=== PATIENT | female | born 1980 | race African-American/Black ===

== ENCOUNTER → 2016-11-18 | Outpatient (CLI) | payer OTHER | LOC: ULTRA 09:34 | DX: N93.9 Abnormal uterine and vaginal bleeding, unspecified (principal); D25.9 Leiomyoma of uterus, unspecified; N83.202 Unspecified ovarian cyst, left side; N83.201 Unspecified ovarian cyst, right side ==

== ENCOUNTER → 2017-02-18 | Outpatient (CLI) | payer OTHER ==
--- NOTE | ~2017-02-18 | SLE ---
[facility] [place] [address] POLYSOMNOGRAPHY STUDY Name: AUSTYN BOYCE Room #: REG [facility]#: [id number] Admission: 02/18/17 Attend Phys: Manuel Salcedo MD, Discharge: Date of : 80 Report #: [id number] THIS REPORT FOR: //name// CC: [facility] physician/PCP Manuel Salcedo HISTORY: A 36-year-old, height 5 feet 8 inches, weight 240 pounds. Usually goes to bed at 9:00 p.m., gets out of bed at 5:10 a.m., does not feel refreshed. Positive history of snoring. COMMENTS: PVC noted. Total sleep time 343 minutes, sleep efficiency 81%. Sleep latency 10 minutes. REM latency 207 minutes. SLEEP STAGE: 1-14%, 2-73%, 3-1%, REM 12%. Central apnea 0, mixed apnea 0, obstructive apnea 0, hypopnea 0. Periodic limb movement with arousal index 1.4 events per sleep hour. Low saturation 94%. IMPRESSION: 1. Snoring. 2. Abnormal sleep architecture. 3. Premature ventricular contraction noted. SUGGESTIONS: 1. This study does not suggest obstructive sleep apnea or upper airway resistance. 2. No significant periodic limb movements noted. 3. Further evaluation regarding etiology of snoring is recommended. 4. If signs and symptoms not improved with therapy, further evaluation is recommended. <ELECTRONICALLY SIGNED> By: Stephy Mercedes MD 02/20/17 2350 1723 1738 Stephy Mercedes MD /nt
== END ==
LOC: SLEEPLAB 18:54
DX: G47.33 Obstructive sleep apnea (adult) (pediatric) (principal)

== ENCOUNTER 2018-07-19 22:48 | Emergency (ER) | payer OTHER ==
[~2018-07-19] VITALS: Ht 172.7 cm; Wt 104.3 kg
[2018-07-19] MEDS ORDERED: PRILOSEC 20 MG20 MG PO (23:07)
[2018-07-19] MEDS ORDERED: ALEVE220 MG PO (23:08)
[2018-07-20] MEDS ORDERED: MORPHINE SULFAT15 M3 PO (00:06)
[2018-07-20] MEDS ORDERED: DOXYCYCLINE 10100 MG PO (00:06)
[2018-07-20 00:32] VITALS: BP 125/81
== END 2018-07-20 00:29 | disposition home or self-care (01) ==
LOC: ER 22:48
DX: M79.672 Pain in left foot (principal); F17.210 Nicotine dependence, cigarettes, uncomplicated

== ENCOUNTER 2018-07-21 16:47 | Inpatient (IN) | payer OTHER ==
[~2018-07-21] VITALS: Ht 172.7 cm; Wt 104.3 kg
--- NOTE | ~2018-07-21 | HC ---
[facility] [place] [place] [address] CONSULTATION Name: AUSTYN BOYCE Room #: 421-P ADM IN M.R.#: [id number] Admission: 07/21/18 Attend Phys: Madison Buck MD Discharge: Date of : 80 Report #: [id number] THIS REPORT FOR: //name// CC: Payton Rodgers Madison Buck DATE OF SERVICE: 07/22/2018 ATTENDING PHYSICIAN: Madison Buck MD. REASON FOR CONSULTATION: Left foot infection. HISTORY OF PRESENT ILLNESS: The patient is a 38-year-old woman admitted with cellulitic changes, left foot and superficial left foot wound infection. Apparently, this patient was seen by his window glass cutter off on the date of admission with redness, swelling of the left foot and a lesion under the head of the left third metatarsal. The patient is scheduled for I and D today. I believe cultures were obtained at the window glass cutter off's office. DRUG ALLERGIES: None listed. MEDICATIONS: The patient is on vancomycin 1 gram IV every 8 hours, Zosyn 3.375 grams IV every 8 hours, p.r.n. hydrocodone. PAST MEDICAL HISTORY: History of podiatric surgeries to the right foot. SOCIAL HISTORY: Single, 1 child. 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 FAMILY HISTORY: See H and P. REVIEW OF SYSTEMS: Left foot pain, otherwise noncontributory. PHYSICAL EXAMINATION: GENERAL: Well-developed woman, overweight, not toxic. VITAL SIGNS: Temperature 98.2, pulse 55, respirations 16, BP 111/55. HEENMT: Within range. NECK: Supple. No thyromegaly. BREASTS: Deferred. HEART: S1, S2. No gallop or murmur. ABDOMEN: Soft, no masses or megaly. LUNGS: Clear to auscultation. EXTREMITIES: Some cellulitic changes of dorsal aspect of left foot and superficial lesion on the sole of the left foot under the head of the third metatarsal. NEUROLOGIC: Grossly within normal limits. [address] [address] CONSULTATION Name: AUSTYN BOYCE Room #: 421-[facility] IN [facility]#: [id number] Admission: 07/21/18 Attend Phys: Madison Buck MD Discharge: Date of : 80 Report #: [id number] LABORATORY DATA: Potassium 3.3, corrected to 3.5, BUN 8, creatinine 0.7, alkaline phosphatase 176. On admission, white blood cell count 13,000, repeated today 7400, hemoglobin 13.8 g/dL, platelets 174,000. ASSESSMENT: 1. Cellulitis, left foot secondary to left foot wound, question infected abscess, infected wart. 2. Elevation of alkaline phosphatase. SUGGESTIONS: While awaiting culture results, we will continue combination of vancomycin and Zosyn. Streamline antibiotics in 24-48 hours. Plan on discharging the patient on oral antibiotic. We will decide that pending culture results. Dr. Buck, thank you for requesting my suggestions. <ELECTRONICALLY SIGNED> By: Rebel Teague MD 07/23/18 1228 1009 1430 Rebel Teague MD /nt
[~2018-07-21 16:47] MED LIST: ALEVE220 MG PO; DOXYCYCLINE 10100 MG PO; MORPHINE SULFAT15 M3 PO; PRILOSEC 20 MG20 MG PO
[2018-07-21 18:19] VITALS: BP 134/83
[2018-07-21 18:26] VITALS: BP 134/83
[2018-07-21 19:22] LABS: HEMATOCRIT 43.9 % (37.0-47.0); HEMOGLOBIN 15.1 gm/dL (12.0-15.0); MCH 31.4 pg (26.0-34.0); MCHC 34.5 g/dL (28.0-37.0); MCV 91.1 fL (80.0-100.0); RBC 4.82 mil/uL (4.20-5.00)
[2018-07-21 19:32] LABS: CALCIUM 9.6 mg/dL (8.5-10.1); CREATININE 0.7 mg/dL (0.6-1.0); POTASSIUM 3.3 mmol/L (3.5-5.1)
[2018-07-21 19:38] LABS: ALBUMIN 3.6 g/dL (3.4-5.0); TOTAL BILIRUBIN 0.4 mg/dL (<0.1-1.0); TOTAL PROTEIN 7.7 g/dL (6.4-8.2)
[2018-07-21 19:49] VITALS: BP 134/82
[2018-07-22 04:21] VITALS: BP 115/62
[2018-07-22 06:19] LABS: HEMOGLOBIN 13.8 gm/dL (12.0-15.0); MCH 31.6 pg (26.0-34.0); MCHC 34.4 g/dL (28.0-37.0); MCV 91.8 fL (80.0-100.0); RBC 4.36 mil/uL (4.20-5.00); WBC 7.4 thou/uL (4.0-11.0)
[2018-07-22 06:35] LABS: CALCIUM 8.7 mg/dL (8.5-10.1); CREATININE 0.7 mg/dL (0.6-1.0); MAGNESIUM 1.8 mg/dL (1.8-2.4); POTASSIUM 3.5 mmol/L (3.5-5.1)
[2018-07-22 08:30] VITALS: BP 115/67
[2018-07-22 08:32] VITALS: BP 111/55
[2018-07-22 17:22] VITALS: BP 115/74
[2018-07-22 19:54] VITALS: BP 123/86
[2018-07-23 04:35] VITALS: BP 121/83
[2018-07-23 05:22] LABS: ABSOLUTE NEUTROPHILS 7.2 thou/uL (1.4-8.2); BASOPHILS 0.4 % (0.0-2.0); EOSINOPHILS 0.1 % (0.0-3.0); HEMATOCRIT 38.6 % (37.0-47.0); LYMPHOCYTES 13.7 % (24.0-44.0); MCHC 33.7 g/dL (28.0-37.0); MCV 92.1 fL (80.0-100.0); MONOCYTES 5.2 % (1.0-8.0); PLATELET COUNT 177 thou/uL (150-400); POLYS 80.6 % (36.0-66.0); RBC 4.19 mil/uL (4.20-5.00); RDW 12.8 % (10.5-14.5); WBC 8.9 thou/uL (4.0-11.0)
[2018-07-23 05:29] LABS: CALCIUM 9.2 mg/dL (8.5-10.1); CREATININE 0.7 mg/dL (0.6-1.0); POTASSIUM 3.9 mmol/L (3.5-5.1)
[2018-07-23 06:43] LABS: LARGE PLATELETS FEW
[2018-07-23 09:12] VITALS: BP 128/78
[2018-07-23 15:45] VITALS: BP 128/78
[2018-07-23 15:55] VITALS: BP 116/56
[2018-07-23 20:35] VITALS: BP 105/53
[2018-07-23 21:10] LABS: GLYCOHEMOGLOBIN (HGB A1C) 5.4 % (4.8-5.6)
[2018-07-24 06:12] LABS: CALCIUM 8.8 mg/dL (8.5-10.1); CREATININE 0.8 mg/dL (0.6-1.0); POTASSIUM 3.2 mmol/L (3.5-5.1)
[2018-07-24 06:38] LABS: ABSOLUTE NEUTROPHILS 3.9 thou/uL (1.4-8.2); BASOPHILS 0.8 % (0.0-2.0); HEMATOCRIT 35.9 % (37.0-47.0); HEMOGLOBIN 12.1 gm/dL (12.0-15.0); LYMPHOCYTES 32.6 % (24.0-44.0); MCH 31.1 pg (26.0-34.0); MCHC 33.7 g/dL (28.0-37.0); MCV 92.3 fL (80.0-100.0); MONOCYTES 8.4 % (1.0-8.0); PLATELET COUNT 167 thou/uL (150-400); POLYS 56.2 % (36.0-66.0); RBC 3.89 mil/uL (4.20-5.00); RDW 12.7 % (10.5-14.5); WBC 6.9 thou/uL (4.0-11.0)
[2018-07-24 07:23] LABS: LARGE PLATELETS OCCASIONAL
[2018-07-24 07:39] VITALS: BP 120/70
[2018-07-24] MEDS ORDERED: HYDROCODON-ACE1 EAC7 PO (14:23)
[2018-07-24 14:29] VITALS: BP 120/70
[2018-07-24] MEDS ORDERED: DYNACIN100 MG PO (14:32)
[2018-07-24] MEDS ORDERED: KEFLEX500 M1 PO ×2 (14:32→14:33)
== END 2018-07-24 15:31 | disposition home or self-care (01) | DRG 580 ==
LOC: 4E 16:47 → ENTRNSPT 07-24 15:16 → EDTRNSPTSTS 07-24 15:18 → 4E 07-24 15:31
PROVIDERS: Hospitalist; Internal Medicine
PROC: 0J9R0ZZ Drainage of Left Foot Subcutaneous Tissue and Fascia, Open Approach (ICD-10-PCS; principal; 2018-07-22)
DX: L03.116 Cellulitis of left lower limb (principal); L02.611 Cutaneous abscess of right foot; M86.172 Other acute osteomyelitis, left ankle and foot; F17.210 Nicotine dependence, cigarettes, uncomplicated; L03.115 Cellulitis of right lower limb; M65.072 Abscess of tendon sheath, left ankle and foot; L03.042 Acute lymphangitis of left toe
CPT/HCPCS: 10783; 50010; 50101; 50386; 53078; 56525; 57091; 57179; 62110; 62900; 64039; 64043; 70005

== ENCOUNTER → 2018-08-12 | Outpatient (CLI) | payer OTHER ==
[~2018-08-12] VITALS: Ht 172.7 cm; Wt 120.2 kg
[~2018-08-12] MED LIST changes: +DYNACIN100 MG PO; +HYDROCODON-ACE1 EAC7 PO; +KEFLEX500 M1 PO
[2018-08-12 11:06] VITALS: BP 108/71
== END ==
LOC: SEN 08:33
DX: L02.612 Cutaneous abscess of left foot (principal); L03.116 Cellulitis of left lower limb

== ENCOUNTER → 2019-07-19 | Outpatient (CLI) | payer OTHER | LOC: CAT 10:22 | DX: K57.32 Diverticulitis of large intestine without perforation or abscess without bleeding (principal); K57.30 Diverticulosis of large intestine without perforation or abscess without bleeding; M16.0 Bilateral primary osteoarthritis of hip ==

== ENCOUNTER → 2019-07-21 | Outpatient (CLI) | payer OTHER ==
[~2019-07-21] MED LIST changes: +ZOSYN 4.54.5 GM/101 IV
== END | disposition home or self-care (01) ==
LOC: RAD 09:02
DX: M25.552 Pain in left hip (principal); G89.29 Other chronic pain; M16.12 Unilateral primary osteoarthritis, left hip; S73.192A Other sprain of left hip, initial encounter; Z79.899 Other long term (current) drug therapy; Z98.890 Other specified postprocedural states; X58.XXXA Exposure to other specified factors, initial encounter; Y93.89 Activity, other specified; Y92.89 Other specified places as the place of occurrence of the external cause; Y99.8 Other external cause status

== ENCOUNTER 2019-08-02 19:03 | Inpatient (IN) | payer OTHER ==
[~2019-08-02] VITALS: Ht 172.7 cm; Wt 103.9 kg
[~2019-08-02 19:03] MED LIST changes: -ZOSYN 4.54.5 GM/101 IV
[2019-08-02 19:10] VITALS: BP 100/56
[2019-08-02 20:35] LABS: URINE BILIRUBIN 1+ (Negative); URINE BLOOD 1+ (Negative); URINE CLARITY CLEAR; URINE COLOR YELLOW; URINE GLUCOSE-RANDOM* NEGATIVE (Negative); URINE KETONES 2+ (Negative); URINE LEUKOCYTES-REFLEX NEGATIVE (Negative); URINE NITRITE-REFLEX NEGATIVE (Negative); URINE PROTEIN (DIPSTICK) NEGATIVE (Negative); URINE SPECIFIC GRAVITY <= 1.005 (1.005-1.035); URINE UROBILINOGEN 0.2 E.U./dl (0.2-1.0)
[2019-08-02 20:47] LABS: BACTERIA-REFLEX None Seen /HPF (None Seen); SQUAMOUS >10 Many /LPF (0-3)
[2019-08-02 20:48] LABS: CRYSTALS None Seen /LPF (None Seen); HYALINE CASTS 0-3 Few /LPF (None Seen); URINE RBC 3-10 Few /HPF (0-2)
[2019-08-02 21:01] LABS: BASOPHILS 0.8 % (0.0-2.0); EOSINOPHILS 0.3 % (0.0-3.0); HEMOGLOBIN 12.7 gm/dL (12.0-15.0); LYMPHOCYTES 16.6 % (24.0-44.0); MCH 30.2 pg (26.0-34.0); MCHC 33.5 g/dL (28.0-37.0); PLATELET COUNT 242 thou/uL (150-400); POLYS 73.3 % (36.0-66.0); RBC 4.22 mil/uL (4.20-5.00); RDW 12.9 % (10.5-14.5); WBC 12.3 thou/uL (4.0-11.0)
[2019-08-02 21:12] LABS: CALCIUM 9.5 mg/dL (8.5-10.1); CREATININE 0.8 mg/dL (0.6-1.0)
[2019-08-02 21:16] LABS: TOTAL BILIRUBIN 0.4 mg/dL (<0.1-1.0); TOTAL PROTEIN 7.2 g/dL (6.4-8.2)
[2019-08-03 00:59] VITALS: BP 113/54
--- NOTE | 2019-08-03 01:04 | NUR ---
ED NURSE ATTEMPTED TO CALL REPORT TO INPATIET NURSE, WAS TOLD INPATIENT NURSE WILL HAVE TO CALL BACK AT A LATER TIME
--- NOTE | 2019-08-03 04:53 | NUR ---
PATIENT ARRIVED ON UNIT AT 0125 FROM ED ACCOMPANIED BY ED PERSONEL. PATIENT ALERT AND ORIENTED X4. IV PATENT IN RAC. NPO AT THIS TIME. PATIENT NOT A FALL RISK. SLEPT OFF AND ON DURING NIGHT.
[2019-08-03 07:30] VITALS: BP 97/57
[2019-08-03 09:12] LABS: CREATININE 0.5 mg/dL (0.6-1.0); MAGNESIUM 1.7 mg/dL (1.8-2.4); POTASSIUM 3.2 mmol/L (3.5-5.1)
[2019-08-03 09:54] LABS: APTT 27.4 Seconds (24.5-32.8); INR 1.2; PROTIME 12.3 Seconds (9.3-11.4)
--- NOTE | 2019-08-03 10:30 | NUR ---
PT A&OX4, IV INTACT IN R AC INFUSING FLUIDS W/O COMPS. UP AD HA. VSS, PT IS NPO. STATES PAIN TO RLQ AT 7/10 ALONG WITH SOME NAUSEA. WILL CONT POC.
[2019-08-03 16:00] VITALS: BP 103/68
--- NOTE | 2019-08-03 16:39 | NUR ---
ASSESSMENT-PT LIVES IN AN APT. SHE WALKS ON HER OWN AND DOES HER OWN ADLS. PER DR Fco HURD PT WILL REQUIRE IV ABX AT UT. FAXED REFERRAL TO [facility] TO CHECK FOR PREFERRED PROVIDERS AND BENEFITS. RIGHT NOW PT HAS MET $19.60 TOWARDS HER $1000 DED., AND SHE HAS MET 4153.16 towards her $6,500 oop max. PT TO GO TO [facility] TOMORROW TO HAVE POSSIBLE DRAIN PLACED. FOLLOWING.
[2019-08-03 16:45] VITALS: BP 154/78
[2019-08-03 19:27] VITALS: BP 112/63
[2019-08-04 03:42] VITALS: BP 121/62
[2019-08-04 05:19] LABS: ABSOLUTE NEUTROPHILS 3.6 thou/uL (1.4-8.2); BASOPHILS 1.3 % (0.0-2.0); EOSINOPHILS 1.4 % (0.0-3.0); HEMATOCRIT 33.1 % (37.0-47.0); HEMOGLOBIN 10.9 gm/dL (12.0-15.0); MCH 30.4 pg (26.0-34.0); MCHC 33.1 g/dL (28.0-37.0); MCV 91.9 fL (80.0-100.0); MONOCYTES 7.5 % (1.0-8.0); PLATELET COUNT 201 thou/uL (150-400); POLYS 61.8 % (36.0-66.0); RDW 13.1 % (10.5-14.5); WBC 5.8 thou/uL (4.0-11.0)
[2019-08-04 05:21] LABS: CALCIUM 8.4 mg/dL (8.5-10.1); CREATININE 0.6 mg/dL (0.6-1.0); POTASSIUM 3.4 mmol/L (3.5-5.1)
--- NOTE | 2019-08-04 05:55 | NUR ---
AOX4. UP AD HA. MEDICATED FOR PAIN RELIEF. VSS. NPO STATUS MAINTIANED. NO COMPLAINS CURRENTLY. WILL CONTINUE TO MONITOR
[2019-08-04 08:04] VITALS: BP 132/63
[2019-08-04 08:16] VITALS: BP 106/68
--- NOTE | 2019-08-04 14:52 | NUR ---
DISCUSSED PICC LINE THAT WAS ORDERED YESTERDAY, PT REFUSING UNTIL SHE SPEAKS WITH . PIV PLACED
[2019-08-04 16:46] VITALS: BP 107/56
--- NOTE | 2019-08-04 18:37 | NUR ---
PT A&OX4, NEW IV IN R FA INTACT INFUSING NS @ 100/HR. AFEBRILE. DRAIN WAS PLACED TODAY. PT REFUSED PICC LINE TODAY UNTIL INFORMS PT INFORMATION ON IV ANTIBIOTIC AND HH. PAIN AND NAUSEA MANAGED BY IV MEDS. REMAIN NPO.
[2019-08-04 20:04] VITALS: BP 119/72
--- NOTE | 2019-08-04 21:04 | HC ---
[facility] [place] [place] [address] CONSULTATION Name: AUSTYN BOYCE Room #: 443-P ADM IN M.R.#: [id number] Admission: 08/03/19 Attend Phys: Vinny Valero MD Discharge: Date of : 80 Report #: [id number] THIS REPORT FOR: //name// CC: Gene Rodgers DATE OF SERVICE: 08/03/2019 INFECTIOUS DISEASE CONSULTATION REASON FOR CONSULTATION: Evaluate diverticular abscess. HISTORY OF PRESENT ILLNESS: A 39 year old presents to the Emergency Room on 06/05/2019 with low-grade fever, chills, left lower quadrant pain that has been going on for several weeks. Initially was evaluated in the outpatient clinic and diagnosed with diverticulitis and given doxycycline and metronidazole. She did not improve with this and persisted with lower abdominal pain, mild nausea, occasional emesis, anorexia. She has had some dysuria. No back or flank pain. Evaluated in the Emergency Room. CT scan shows evidence of sigmoid diverticular disease with diverticulitis and a presacral abscess. There was no free air in the abdomen. She has a moderate amount of pain that is intermittent. She has had loose stools. No blood in her urine or fecal material in her urine. The patient reports longstanding loose stools. She has had no episodes of prolonged constipation. She has not sought evaluation for this up to this point in time. ALLERGIES: None known. MEDICATIONS: As noted on her MAR, now on Zosyn, omeprazole and hydromorphone p.r.n. FAMILY HISTORY: Noncontributory. SOCIAL HISTORY: Past smoker. Minimal alcohol intake. PAST MEDICAL AND SURGICAL HISTORY: Foot abscess, status post I and D; right bunionectomy, second and third toe; right foot fusion; laparoscopy and hysteroscopy; tonsillectomy and gastroesophageal reflux. REVIEW OF SYSTEMS: Ten-point review was negative other than what has been described above. PHYSICAL EXAMINATION: VITAL SIGNS: Afebrile and hemodynamically stable. GENERAL: She is alert and cooperative and pleasant, in no acute distress. [facility] [address] [place] [address] CONSULTATION Name: AUSTYN BOYCE Room #: 443-P [facility] IN M.R.#: [id number] Admission: 08/03/19 Attend Phys: Vinny Valero MD Discharge: Date of : 80 Report #: [id number] SKIN: Without rash. Several tattoos. No palpable adenopathy. HEENT: Eyes, without scleral icterus. Mouth without mucositis. NECK: Supple. LUNGS: Clear. HEART: Regular without murmur, gallop or rub. ABDOMEN: Soft, mild tenderness in the lower abdomen without appreciable mass or hepatosplenomegaly. No guarding or rebound. No CVA tenderness. GENITORECTAL: Not performed. EXTREMITIES: Without clubbing, cyanosis or edema. NEUROLOGIC: Cranial nerves intact. Strength in the upper and lower extremities is normal. Sensation upper and lower extremities normal. LABORATORY STUDIES: Lactate 0.6, sodium 141, potassium 3.2, bicarbonate 29, creatinine 0.5. Liver function tests normal. Hemoglobin 12.7, WBC 12.3, platelet count 242,000. IMPRESSION: A 39 year old with diverticulitis of the sigmoid colon with development of pericolonic phlegmonous change and a presacral abscess. RECOMMENDATIONS: Continuing Zosyn and obtain evaluation by Interventional Radiology for drainage procedure. Once bowel has calmed down, we then proceed with colonoscopy and likely need area of sigmoid colon resected. <ELECTRONICALLY SIGNED> By: Darrick Wilkins MD 08/04/19 2104 1203 0058 Darrick Wilkins MD /nt
[2019-08-05 04:51] VITALS: BP 105/63
--- NOTE | 2019-08-05 06:09 | NUR ---
Assumed pt care at 1900. Pt is A/OX4,VSS. C/o pain to RLQ 6/10 medicated per EMAR with relief reported. Also c/o nausea with no emesis reliefed by meds. Pt is NPO ice chips only awaiting repeat Abd CT possibly Friday to assess the abscess. Pt also received her Flu shot at HS no ADR reported so far,will continue to monitor pt. She's up ad christian w/o any problems noted.
[2019-08-05 08:43] VITALS: BP 110/61
--- NOTE | 2019-08-05 17:03 | NUR ---
DISCUSSED PT'S BENEFITS FOR IV ABX AND PT SAYS SHE WILL NOT BE ABLE TO DO THIS AT HOME. PT HAS FINANCIAL CONCERNS WELL. PT WOULD BE WILLING TO COME OUTPT TO THE INFUSION AREA IF A Q24HR MED IS AVAILABLE. WILL DISCUSS WITH DR Fco HURD.
--- NOTE | 2019-08-05 18:30 | NUR ---
PT ASSESSED AT START OF SHIFT. PT C/O PAIN AND NAUSEA ON REGULAR BASIS THROUGHOUT SHIFT. HELPED W/ PAIN AND NAUSEA MEDS. NEW IV PER IV TEAM. UP AD HA IN ROOM. REPEAT CT IN AM TO SEE IF ANY IMPROVEMENT.
--- NOTE | 2019-08-05 19:32 | NUR ---
NOTIFIED TO PLACE A PERIPHERAL IV, SHE IS REFUSING THE PICC PLACEMENT AT THIS TIME
[2019-08-05 19:59] VITALS: BP 109/67
--- NOTE | 2019-08-06 03:41 | NUR ---
PT WAS OBSERVED SITTING UP IN BED AT START OF SHIFT.PT REQUESTED FOR AND RECEIVED PAIN AND NAUSEA MEDS PER HER REQUEST.IVF AND IV ABX GIVEN ORDERED.UP ADLIB IN ROOM.PT ABLE TO MAKE HER NEEDS KNOWN.CALL LIGHT WITHIN REACH.
[2019-08-06 04:57] VITALS: BP 118/72
[2019-08-06 05:11] LABS: BASOPHILS 0.8 % (0.0-2.0); EOSINOPHILS 2.2 % (0.0-3.0); HEMATOCRIT 31.6 % (37.0-47.0); HEMOGLOBIN 10.7 gm/dL (12.0-15.0); LYMPHOCYTES 33.3 % (24.0-44.0); MCH 30.7 pg (26.0-34.0); MCHC 33.8 g/dL (28.0-37.0); MONOCYTES 7.6 % (1.0-8.0); PLATELET COUNT 212 thou/uL (150-400); POLYS 56.1 % (36.0-66.0); RBC 3.47 mil/uL (4.20-5.00); WBC 5.3 thou/uL (4.0-11.0)
[2019-08-06 08:44] VITALS: BP 112/72
--- NOTE | 2019-08-06 09:47 | NUR ---
PATIENT LEFT FOR TEST AT THIS TIME. GIVEN PRN PAIN MED AND ZOFRAN AT THIS TIME
--- NOTE | 2019-08-06 15:16 | NUR ---
PLAN PER DR HANSON WILL BE TO REPEAT A CT SCAN AGAIN ON FRIDAY TO MONITOR ABD ABCESS. PT CONTINUES ON IV ABX.
[2019-08-06 16:33] VITALS: BP 113/66
[2019-08-06 19:15] VITALS: BP 118/69
--- NOTE | 2019-08-07 02:52 | NUR ---
PATIENT ALERT AND ORIENTED X4. UP ADLIB IN ROOM. IVF INFUSING W/O COMPLICATION. MEDICATED FOR PAIN PRN ALONG WITH ZOFRAN. REMAINS NPO WITH ICE CHIPS. PER AM NURSE DR. SMITH WILL OBSERVE PATIENT THIS WEEKEND AND SHE WILL HAVE A CT OF HER ABDOMEN ON FRIDAY WITH POSSIBLE DISCHARGE. WILL MONITOR.
[2019-08-07 04:28] VITALS: BP 109/69
[2019-08-07 05:38] LABS: HEMOGLOBIN 10.8 gm/dL (12.0-15.0); MCH 30.7 pg (26.0-34.0); MCHC 33.8 g/dL (28.0-37.0); MCV 90.9 fL (80.0-100.0); RBC 3.52 mil/uL (4.20-5.00)
[2019-08-07 05:46] LABS: CALCIUM 8.6 mg/dL (8.5-10.1); CREATININE 0.7 mg/dL (0.6-1.0); POTASSIUM 3.2 mmol/L (3.5-5.1)
[2019-08-07 08:10] VITALS: BP 116/68
[2019-08-07 15:43] VITALS: BP 120/67
[2019-08-07 16:00] VITALS: BP 124/61
--- NOTE | 2019-08-07 16:02 | NUR ---
ASSUMED CARE OF PT AT 0700. PT IS UP AD HA. N/V UNDER CONTROL WITH MEDICATION.PAIN CONTROLLED WITH PAIN MEDICATION. ANOTHER CT OF ABDOMEN WILL BE DONE ON 08/09. PT WILL REMAIN NPO. CAN HAVE ICE CHIPS AND TAKE PO MEDICATIONS WITH SIPS OF WATER. BED IN LOWEST POSITION. CALL LIGHT WITHIN REACH. WILL CONTINUE TO MONITOR PT.
[2019-08-07 21:03] VITALS: BP 120/75
--- NOTE | 2019-08-08 02:44 | NUR ---
ASSESSMENTS COMPLETED. PT FEELING TIRED WITH SOME DIZZINESS. BG WAS 51. LONI MILLER WAS NOTIFIED AND ORDERS FOR D5NS @100ML/HR WAS RECIEVED. AFTER 2HRS BG WENT UP TO 78. PT STATED THAT SHE FEELS A LITTLE BETTER. PT IS ADLIB IN THE ROOM WITH STAEDY GAIT. NAUSEA AND PAIN ARE WELL CONTROLLED WITH CURRENT REGIMENS. NPO STATUS STILL IN PLACED WITH SIPS AND MEDS. LONI ANGELA DIDN'T WANT PT ON A Q6 SCHEDULED BG CHECK. BG IS TO BE CHECKED AT 0400, AND IF WNL; TO CONT CURRENT POC WITH D5NS @100ML/HR. CALL ZUNIGA WITHIN REACH, PT IS ENCOURAGED TO CALL FOR ASSISTANCE NEEDED. NO S/S OF DISTRESS. CONT TO MONITOR
[2019-08-08 03:35] VITALS: BP 112/70
[2019-08-08 07:45] VITALS: BP 119/66
--- NOTE | 2019-08-08 15:06 | NUR ---
ASSUMED CARE OF PT AT 0700. PT IS NPO.PAIN IS UNDER CONTROL WITH PAIN MEDICATION. PT IS VERY ANXIOUS AND ASKED ABOUT LEAVING AMA. EXPLAINED TO PT THAT WE CANNOT KEEP HER, BUT A FORM NEEDS TO BE SIGNED IF SHE DECIDES TO AMA. PT EXPRESSED THAT SHOULD WOULD WAIT AND SHE. BED IN LOWEST POSITION. CALL LIGHT WITHIN REACH. WILL CONTINUE TO MONITOR THE PT.
[2019-08-08 15:29] VITALS: BP 147/68
[2019-08-08 16:51] LABS: CALCIUM 8.7 mg/dL (8.5-10.1); CREATININE 0.6 mg/dL (0.6-1.0); MAGNESIUM 1.6 mg/dL (1.8-2.4)
[2019-08-08 16:52] LABS: POTASSIUM 2.9 mmol/L (3.5-5.1)
[2019-08-08 18:57] VITALS: BP 116/64
--- NOTE | 2019-08-09 03:04 | NUR ---
PATIENT ALERT AND ORIENTED X4. C/O PAIN AND NAUSEA FOR WHICH MEDICATION WAS GIVEN WITHIN PARAMETERS. REMAINS NPO. IVF INFUSED W/O COMPLICATION. TOLERATING ICE CHIPS WITH NO EMESIS DURING THE NIGHT. POTASSIUM LEVEL DRAWN PER PROTOCOL PATIENT WAS 2.9 AT SHIFT CHANGE. LAB DRAWN AGAIN FOR K+ AT APPROX. 2245 AND WAS 3.2. PER PROTOCOL PATIENT IS RECEIVING 20MEQ IVPB X2 AT TIME OF THIS NOTE AND WILL BE RECHECKED PER PROTOCOL. RESTING QUIETLY AT TIME OF NOTE. WILL MONITOR.
[2019-08-09 05:08] LABS: HEMATOCRIT 35.2 % (37.0-47.0); HEMOGLOBIN 11.9 gm/dL (12.0-15.0); MCH 30.3 pg (26.0-34.0); MCHC 33.8 g/dL (28.0-37.0); MCV 89.7 fL (80.0-100.0); RBC 3.93 mil/uL (4.20-5.00); RDW 13.5 % (10.5-14.5); WBC 5.3 thou/uL (4.0-11.0)
[2019-08-09 05:25] LABS: CALCIUM 8.9 mg/dL (8.5-10.1); CREATININE 0.7 mg/dL (0.6-1.0); POTASSIUM 3.8 mmol/L (3.5-5.1)
[2019-08-09 07:20] VITALS: BP 129/77
--- NOTE | 2019-08-09 11:03 | NUR ---
PATIENT LEFT AT THIS TIME TO HAVE CT OF ABD. WAS GIVEN PRN ZOFRAN AND PAIN MED IV BEFORE.
--- NOTE | 2019-08-09 15:28 | NUR ---
CASE DISCUSSED WITH ATTENDING AND WITH DR Fco HURD. DR HURD WAWARE PT REFUSING OUTPT ABX & WILL ONLY DO OUTPT INFUSION IF IV'S NEEDED. AFTER REVIEWING INFO DR HURD SAYS HOME ON ORAL ABX ONCE MEDICALLY STABLE.
[2019-08-09 15:40] VITALS: BP 124/76
[2019-08-09 19:31] VITALS: BP 100/67
--- NOTE | 2019-08-09 21:49 | NUR ---
PT HAD CT SCAN SEE CHART RESULTS. CALL TO DR JACKSON XS 2 DR FLORES RETURNED CALL AT 1607 STATED PATIENT COULD HAVE CLEAR LIQUID DIET UNTIL MIDNIGHT THEN NPO.HAS D5 NS INFUSING AT 100/HR THROUGH LEFT FA. PT TAKES ZOFRAN AND DILUADID IV PUSH EVERY 4 HOURS. DRANK CONTRAST XS 2 BOTTLES EARLIER AND STATES HAS FELT BAD EVER SINCE. PATIENT STATES DOES NOT WANT ANYMORE PO OR IV KCL MAKES HER FEEL BAD. PT WANTS TO DC TO HOME TOMMORROW.
--- NOTE | 2019-08-10 04:20 | NUR ---
ASSUMED PT CARE AROUND 1900. A&OX4. PT C/O RLQ ABDOMINAL PAIN AND GENERALIZED ACHING PAIN. PAIN MEDICATION GIVEN. SHE ALSO C/O SOME NAUSEA, ESPECIALLY AFTERING DRINKING ORAL CONTRAST YESTERDAY. ZOFRAN GIVEN. PT HAS BEEN SLEEPING MOST OF THE NIGHT. NPO SINCE MIDNIGHT PER SURGEON'S ORDER. PT IS UP AD HA AROUND THE ROOM. NO OTHER MAJOR COMPLAINTS THIS SHIFT. PROGRESSING SLOWLY TOWARD POC GOALS. WILL CONTINUE TO MONITOR FURTHER.
--- NOTE | 2019-08-10 04:23 | NUR ---
PT'S POTASSIUM WAS BELOW NORMAL RANGE WITH AM LABS YESTERDAY. PT IS ON ELECTROLYTE REPLACEMENT PROTOCOL. PT REFUSED POTASSIUM REPLACEMENT. WILL MONITOR AM LABS THIS MORNING.
[2019-08-10 04:55] VITALS: BP 147/78
[2019-08-10 06:35] LABS: HEMATOCRIT 35.3 % (37.0-47.0); HEMOGLOBIN 11.7 gm/dL (12.0-15.0); MCH 29.8 pg (26.0-34.0); MCV 90.3 fL (80.0-100.0); RBC 3.91 mil/uL (4.20-5.00); RDW 13.6 % (10.5-14.5); WBC 5.3 thou/uL (4.0-11.0)
[2019-08-10 06:44] LABS: CALCIUM 8.9 mg/dL (8.5-10.1); CREATININE 0.7 mg/dL (0.6-1.0)
[2019-08-10 06:49] LABS: POTASSIUM 2.8 mmol/L (3.5-5.1)
[2019-08-10 08:09] VITALS: BP 126/75
--- NOTE | 2019-08-10 16:01 | NUR ---
Following for d/c planning needs. Received order from physician to arrange home IVAB. Spoke with pt and she is agreeable. [facility] is in network with pt's insurance. Faxed referral to [facility] and liaison came to do onsite. Benefits were run and pt has $27/day co-pay for medications and supplies until out of pocket maximum has been met. Pt was given information re: co-pay amount. [facility] has financial assistance program. Liaison provided assistance program paperwork. Gave to pt to complete. Will fax to [facility] when completed. Will remain available to assist as needed.
[2019-08-10 16:46] VITALS: BP 119/61
--- NOTE | 2019-08-10 19:59 | NUR ---
PT A&OX4. IV INTACT AT THIS TIME IN R AC. POTTASIUM IV INFUSING. PT NOW ON CLEAR LIQUID DIET. TOLERATING IV PAIN AND NAUSEA MEDS. PLANS ARE FOR PT TO DC WITH IV ABX.
[2019-08-10 20:05] VITALS: BP 114/68
--- NOTE | 2019-08-11 04:40 | NUR ---
Assumed pt care at 1900. Pt A/OX4,upset about IV team not coming to start a midline on her per day nurse report ER nurse came and started a PIV on pt. Pt complained about the IV being in a location she had one before and stated it was bad. IV patent and has blood return in it. Offered to switch sites but she declined stating only IV team can do it,prison guard supervisor notified and informed this engineering writer that the IV team had already been to pt's room earlier and the plan was to put midline/PICC 08/11 per MORAIMA queen if needed. Metal Patternmaker went back to pt's room and informed of the above;pt didn't verbalize having any contact with IV team but hasn't had further complains about the IV. IVF/KCL infusing at this time w/o any difficulties. Medicated for pain/nausea per request with relief reported. Pt verbalized desire to really go home today. Encouraged to call for help as needed. Call light/personal items within reach.
[2019-08-11 05:25] VITALS: BP 138/80
--- NOTE | 2019-08-11 11:25 | NUR ---
SPOKE WITH DR TOLENTINO HE IS PUTTING ORDERS IN FOR PO N$V MED AND MIDLINE PLACEMENT. PT TO DISCHARGE TO HOME TODAY.
--- NOTE | 2019-08-11 12:25 | NUR ---
Following for d/c planning needs. [facility] did on-site visit with pt and instruction with pt and pt's sister. Plan is for liaison to return today for additional instruct. Pt's sister said that pt has not completed financial assistance form, but that pt should be able to afford the $189 for the 2 weeks worth of IVAB. Pt to d/c home today.
[2019-08-11] MEDS ORDERED: HYDROCODON-ACE1 EAC7 PO (12:44)
[2019-08-11] MEDS ORDERED: ZOSYN 4.54.5 GM/101 IV (12:45)
[2019-08-11 13:02] VITALS: BP 138/80
[2019-08-11 13:59] VITALS: BP 138/80
[2019-08-11 14:50] VITALS: BP 138/80
--- NOTE | 2019-08-11 14:52 | NUR ---
DISCHARGE PAPERS GONE OVER WITH PATIENT SIGNED AND COPY IN CHART. HAS LEFT UPPER ARM MIDLINE FOR HOME IV ABT.PT W/O PAIN OR RESP DISTRESS AT DC
== END 2019-08-11 15:34 | disposition home health service (06) | DRG 392 ==
LOC: ER 19:03 → 4S 08-03 00:46 → EROBS 08-03 00:46 → 4S 08-03 01:20 → ENTRNSPT 08-11 14:43 → EDTRNSPTSTS 08-11 14:46 → 4S 08-11 15:34
PROVIDERS: Emergency Medicine; Hospitalist; Nurse Practitioner Acute Care; Surgery; ADMIT Hospitalist
PROC: 05HY33Z Insertion of Infusion Device into Upper Vein, Percutaneous Approach (ICD-10-PCS; principal; 2019-08-11)
PROC: B54NZZZ Ultrasonography of Left Upper Extremity Veins (ICD-10-PCS; 2019-08-11)
DX: K57.20 Diverticulitis of large intestine with perforation and abscess without bleeding (principal); N39.0 Urinary tract infection, site not specified; E87.6 Hypokalemia; N73.9 Female pelvic inflammatory disease, unspecified; K21.9 Gastro-esophageal reflux disease without esophagitis; Z90.710 Acquired absence of both cervix and uterus; Z98.1 Arthrodesis status; Z87.891 Personal history of nicotine dependence; Z79.899 Other long term (current) drug therapy; Z23 Encounter for immunization
CPT/HCPCS: 10195; 27000

== ENCOUNTER → 2019-08-19 | Outpatient (CLI) | payer OTHER ==
[~2019-08-19] MED LIST changes: +ZOSYN 4.54.5 GM/101 IV
--- NOTE | 2019-08-19 13:43 | NUR ---
CONSULTED TO REPLACE A MIDLINE FOR A PATIENT RECEIVING HOME IV ANTIBIOTICS. PRIOR MIDLINE WAS LEAKING AT THE SITE. LINE REMOVED AND PRESSURE HELD PER POLICY. AFTER A VERBAL CONSENT WAS OBTAINED A #4F POWERMIDLINE WAS PLACED PER HOSPITAL POLICY. LINE WAS TRIMMED TO 12CM AND ADVANCED WITHOUT DIFFICULTY. LINE SECURED AND RELEASED FOR USE. PATIENT CARE TURNED OVER TO RUTH SAUCEDO IN OP INFUSION
--- NOTE | 2019-08-19 14:32 | NUR ---
ADDON TODAY FOR MIDLINE REPLACEMENT. IV TEAM SONG REPLACED MIDLINE THE OLD ONE WAS LEAKING. PATIENT ALERT AND ORIENTED X 4. DENIED ALLERGIES. MIDLINE REPLACED IN LEFT UPPER ARM AND TOLERATED WELL. SALINE LOCKED. DISMISSED IN GOOD CONDITION.
== END | disposition home or self-care (01) ==
LOC: CV 12:12 → OPONC 12:12
DX: Z45.2 Encounter for adjustment and management of vascular access device (principal); Z98.890 Other specified postprocedural states; Z79.899 Other long term (current) drug therapy; Z79.891 Long term (current) use of opiate analgesic; Z87.19 Personal history of other diseases of the digestive system
CPT/HCPCS: 27000

== ENCOUNTER → 2019-08-25 | Outpatient (CLI) | payer OTHER | LOC: CAT 08:59 | DX: K57.32 Diverticulitis of large intestine without perforation or abscess without bleeding (principal); N73.9 Female pelvic inflammatory disease, unspecified; K57.30 Diverticulosis of large intestine without perforation or abscess without bleeding ==

== ENCOUNTER → 2019-08-27 | Outpatient (CLI) | payer OTHER ==
[~2019-08-27] MED LIST changes: +CARAFATE1 GM PO; +CIPRO500 M1 PO; +CLINDAMYCIN HC150 MG PO; +FAMOTIDINE 20 M20 MG PO; +PEPCID COMPLET1 EACH PO
--- NOTE | 2019-08-27 15:31 | NUR ---
PT ASSESSED IN OUTPT INFUSION. HER ML FROM 08/13 WAS REMOVED ON 08/19 AND A NEW ML PLACED. THAT ML WAS REMOVED BY HH RN YESTERDAY. VICKEY WANTED ANOTHER ML PLACED. DUE TO THE FAILURE OF ML'S WITH THIS PT ASKED FOR A PICC ORDER AND HE COMPLIED. 4FRSLPICC PLACED RUABASILIC WITH THE TIP CONFIRMED AT THE [facility]. PT RELEASED TO GO HOME.
== END ==
LOC: OPONC 10:08
DX: Z45.2 Encounter for adjustment and management of vascular access device (principal)
CPT/HCPCS: 27000

== ENCOUNTER → 2019-09-02 | Outpatient (CLI) | payer OTHER ==
[~2019-09-02] MED LIST changes: -CARAFATE1 GM PO; -CIPRO500 M1 PO; -CLINDAMYCIN HC150 MG PO; -FAMOTIDINE 20 M20 MG PO; -PEPCID COMPLET1 EACH PO
== END ==
LOC: CAT 13:04
DX: K76.0 Fatty (change of) liver, not elsewhere classified (principal); K57.92 Diverticulitis of intestine, part unspecified, without perforation or abscess without bleeding; K57.30 Diverticulosis of large intestine without perforation or abscess without bleeding; M47.816 Spondylosis without myelopathy or radiculopathy, lumbar region

== ENCOUNTER 2019-09-17 16:04 | Emergency (ER) | payer OTHER ==
[~2019-09-17] VITALS: Ht 172.7 cm; Wt 95.3 kg
[2019-09-17] MEDS ORDERED: CIPRO500 M1 PO (16:23)
[2019-09-17] MEDS ORDERED: CLINDAMYCIN HC150 MG PO (16:24)
[2019-09-17 17:00] LABS: MCH 30.2 pg (26.0-34.0); MCHC 33.1 g/dL (28.0-37.0); MCV 91.2 fL (80.0-100.0)
[2019-09-17 17:02] LABS: ABSOLUTE NEUTROPHILS 3.3 thou/uL (1.4-8.2); BASOPHILS 1.1 % (0.0-2.0); EOSINOPHILS 2.2 % (0.0-3.0); HEMATOCRIT 38.6 % (37.0-47.0); HEMOGLOBIN 12.8 gm/dL (12.0-15.0); LYMPHOCYTES 34.8 % (24.0-44.0); PLATELET COUNT 275 thou/uL (150-400); POLYS 50.9 % (36.0-66.0); RBC 4.23 mil/uL (4.20-5.00); RDW 15.4 % (10.5-14.5); WBC 6.4 thou/uL (4.0-11.0)
[2019-09-17 17:07] LABS: ANION GAP 14 mmol/L (7-16); BUN 9 mg/dL (7-18); CALCIUM 10.2 mg/dL (8.5-10.1); CHLORIDE 101 mmol/L (98-107); CO2 21 mmol/L (21-32); CREATININE 0.9 mg/dL (0.6-1.0); GLUCOSE 90 mg/dL (74-106); POTASSIUM 3.5 mmol/L (3.5-5.1); SODIUM 136 mmol/L (136-145)
[2019-09-17 17:17] LABS: ALBUMIN 3.7 g/dL (3.4-5.0); SGOT 38 U/L (15-37); SGPT 41 U/L (30-65); TOTAL BILIRUBIN 0.3 mg/dL (<0.1-1.0); TOTAL PROTEIN 7.4 g/dL (6.4-8.2); TROPONIN-I <0.06 ng/mL (<0.06)
[2019-09-17] MEDS ORDERED: FAMOTIDINE 20 M20 MG PO (18:15)
[2019-09-17 18:36] VITALS: BP 118/72
--- NOTE | 2019-09-20 07:35 | EKG ---
[place] [address] [address] [place] [address] ELECTROCARDIOGRAM REPORT Name: AUSTYN BOYCE [id number] Admission: 09/17/19 Attend Phys: Discharge: 09/17/19 Date of : 80 Report #: [id number] THIS REPORT FOR: //name// [facility] [place] [place] ED Test Date: 2019-09-17 Test Time: 16:38:51 Pat Name: AUSTYN BOYCE Department: Room: Gender: F Spanish Interpreter/Translator: WG : 1980 Requested By: Nancie Méndez Order Number: [id number] MD: Noble Espinoza Measurements Intervals [place] Rate: 55 P: 28 NJ: 116 QRS: -8 QRSD: 99 T: 27 QT: 450 QTc: 431 Interpretive Statements Sinus bradycardia Borderline short NJ interval No previous ECG available for comparison Electronically Signed On 09-20-2019 7:35:30 STOP ATTACHER by Noble Espinoza [email or web address] <ELECTRONICALLY SIGNED> By: Noble Espinoza MD, [facility] 09/20/19 0735 1638 1638 Noble Espinoza MD, FACC /EPI
== END 2019-09-17 18:20 | disposition home or self-care (01) ==
LOC: ER 16:04
PROVIDERS: Physician Assistant
DX: R13.10 Dysphagia, unspecified (principal); T36.8X5A Adverse effect of other systemic antibiotics, initial encounter; K21.9 Gastro-esophageal reflux disease without esophagitis; F17.210 Nicotine dependence, cigarettes, uncomplicated; Z90.89 Acquired absence of other organs; Y92.89 Other specified places as the place of occurrence of the external cause

== ENCOUNTER → 2019-10-04 | Outpatient (CLI) | payer OTHER ==
[~2019-10-04] MED LIST changes: +CARAFATE1 GM PO; +CIPRO500 M1 PO; +CLINDAMYCIN HC150 MG PO; +FAMOTIDINE 20 M20 MG PO; +PEPCID COMPLET1 EACH PO
== END ==
LOC: CAT 07:49
DX: K44.9 Diaphragmatic hernia without obstruction or gangrene (principal); K76.0 Fatty (change of) liver, not elsewhere classified; K57.90 Diverticulosis of intestine, part unspecified, without perforation or abscess without bleeding; K57.92 Diverticulitis of intestine, part unspecified, without perforation or abscess without bleeding

== ENCOUNTER → 2019-10-13 | Outpatient (CLI) | payer OTHER ==
[~2019-10-13] VITALS: Ht 172.7 cm; Wt 97.5 kg
--- NOTE | 2019-10-14 15:07 | PATH ---
[facility] [place] [address] PATHOLOGY RPT PROCEDURE Name: AUSTYN NORTH Room #: REG [facility] M..#: [id number] Admission: 10/13/19 Date of : 80 Discharge: Report #: [id number] Path Case #: [id number] [facility] Accession Number: [id number] . 01 Material submitted: . PART A: duodenum - BX OF DUODENUM PART B: colon - POLYP AT ASCENDING COLON. Modifiers: ascending PART C: colon - RANDOM COLON BX PART D: sigmoid colon - POLYP AT SIGMOID COLON PART E: rectum - BX OF RECTAL ERYTHEMA . 01 Clinical history: . Pre-op diagnosis: Diarrhea, dysphagia, diverticulitis Post-op diagnosis: Colon polyp, hiatal hernia, esophagitis, rectal erythema, diverticulosis A: R/O sprue C: R/O microscopic colitis E: R/O colitis . 02 Diagnosis: A. Small bowel mucosa, duodenum, endoscopic biopsy: - Mild nonspecific acute duodenitis associated with fundic-type metaplasia. - No definite villous blunting or increase in intraepithelial lymphocytes identified. . B. Polyp, at ascending colon, endoscopic biopsy: - Tubular adenoma admixed with hyperplastic changes. - Negative for high-grade dysplasia. . C. Large intestinal mucosa, random colon, endoscopic biopsy: - Nonspecific focal acute cryptitis associated with reactive changes. - Negative for microscopic colitis. - Negative for dysplasia or malignancy. . D. Polyp, at sigmoid colon, endoscopic biopsy: - Inflamed tubular adenoma. - Negative for high-grade dysplasia. . E. Large intestinal mucosa, rectal erythema, rule out colitis, endoscopic biopsy: - Lamina propria hemorrhage. - Crypts showing reactive/hyperplastic changes. - Negative for acute cryptitis. - Negative for microscopic colitis. - Negative for dysplasia or malignancy. (IUV:pit; 10/14/2019) P 10/14/2019 1216 [facility] [address] [place] [address] PATHOLOGY RPT PROCEDURE Name: AUSTYN NORTHN [facility] [id number] Admission: 10/13/19 Date of : 80 Discharge: Report #: [id number] Path Case #: [id number] . 02 Comment: The changes identified within the "random colon rule out microscopic colitis" biopsy tissue may be suggestive of focal acute resolving episode of colitis, acute diverticulitis, medication/drug induced colitis, as well as bowel preparation. Please correlate clinically. (IUV:pit; 10/14/2019) . . 02 Electronically signed: . Tracey Johns MD, Pathologist NPI- [id number] . 01 Gross description: . A. The specimen is received in formalin, labeled "Kimya North, biopsy duodenum, R/O sprue". Received are four segments of pale estrada soft tissue ranging in size from 0.3 to 0.4 cm in maximum dimensions. The specimen is submitted entirely in cassette A1. . B. The specimen is received in formalin, labeled "Kimya North, polyp at ascending colon". Received is a segment of pale estrada soft tissue measuring 0.4 cm in maximum dimensions. The specimen is submitted entirely in cassette B1. . C. The specimen is received in formalin, labeled "Kimya North, random colon biopsy, R/O my cassette colitis". Received are five segments of pale estrada soft tissue ranging in size from 0.3 to 0.6 cm in maximum dimensions. The specimen is submitted entirely in cassette C1. . D. The specimen is received in formalin, labeled "Kimya North, polyp at sigmoid colon". Received is a segment of red-estrada soft tissue measuring 0.5 x 0.5 x 0.5 cm in greatest dimensions. The surgical margin is inked. The specimen is bisected and entirely submitted in cassette D1. . E. The specimen is received in formalin, labeled "Kimya North, biopsy rectal erythema, R/O colitis". Received are three segments of light brown soft tissue ranging in size from 0.4 to 0.5 cm in maximum dimensions. The specimen is submitted entirely in cassette E1. (CAA; 10/13/2019) QA/QA 10/13/2019 1904 Local . 02 Pathologist provided ICD-10: K29.80, D12.2, D12.5, K52.9, R19.7 . 02 CPT . 319921, 149534, 469633, 059811, [id number] Specimen Comment: A courtesy copy of this report has been sent to [phone], [address] [address] PATHOLOGY RPT PROCEDURE Name: AUSTYN NORTH Room #: PING [facility].#: [id number] Admission: 10/13/19 Date of : 80 Discharge: Report #: [id number] Path Case #: [id number] Specimen Comment: [id number] Specimen Comment: Report sent to and Performed at: 01 [facility] [address], [place], [place] [id number] MD Felix Harley MD Phone: [phone] Performed at: [address] [id number] MD Tracey Johns MD Phone: [phone]
--- NOTE | 2019-10-23 10:24 | P ---
[facility] [place] [address] PROCEDURE REPORT Name: AUSTYN BOYCE Room #: REG [facility].#: [id number] Admission: 10/13/19 Attend Phys: Rubén Ramsey Discharge: Date of : 80 Report #: [id number] THIS REPORT FOR: //name// CC: Rubén Salcedo MD DATE OF SERVICE: 10/13/2019 PROCEDURE PERFORMED: Colonoscopy with polypectomy. HISTORY OF PRESENT ILLNESS: The patient is a 39-year-old female with episode of diverticulitis within the last 2 months, was hospitalized, treated with antibiotics. Since then, she has been having diarrhea, abdominal pain is resolved. She denies any blood in her stools. No previous history of colonoscopy. No family history of colon cancer or inflammatory bowel disease. Plan is for colonoscopy. DESCRIPTION OF PROCEDURE: The risks and benefits of the procedure were explained to the patient, those risks including but not limited to bleeding, perforation and the risk of sedation. She understood these risks and gave informed consent. Sedation was given using propofol per anesthesia. Next, a digital rectal exam was initially performed, which was normal. Next, using a standard Olympus colonoscope, the scope was placed in the patient's anus and advanced under direct vision to the cecum. The overall prep was good. The cecum and ileocecal valve were normal in appearance. Terminal ileum was intubated and normal in appearance. In the proximal ascending colon, a 3 mm sessile polyp was noted. This was removed with cold forceps, otherwise normal. Transverse colon was normal. Multiple diverticula noted in the descending and sigmoid colon, no evidence of inflammation. Random biopsies were obtained to rule out the possibility of microscopic colitis. In the sigmoid colon, an 8 mm partially pedunculated polyp was also noted. This was removed by snare cautery. The rectal mucosa showed some mild erythema. Biopsies were obtained to rule out colitis. On retroflexion, no abnormalities were noted. The scope was then withdrawn and the procedure terminated. The patient tolerated the procedure well. IMPRESSION: 1. Small colonic polyps. 2. Left-sided diverticulosis without inflammation. 3. Mild rectal erythema. 4. Otherwise, normal colonoscopy. RECOMMENDATIONS: 1. Await biopsy results. [address] [address] PROCEDURE REPORT Name: AUSTYN BOYCE Room #: REG [facility] Rosita#: [id number] Admission: 10/13/19 Attend Phys: Rubén Ramsey Discharge: Date of : 80 Report #: [id number] 2. If polyps are hyperplastic, repeat in 10 years; if adenomatous polyp, repeat in 5 years. Thank you for allowing me to participate in her care. <ELECTRONICALLY SIGNED> By: Rubén Wise MD 10/23/19 1024 1225 1442 Rubén Wise MD /nt
--- NOTE | 2019-10-23 10:24 | P ---
[facility] [place] [address] PROCEDURE REPORT Name: AUSTYN BOYCE [id number] Admission: 10/13/19 Attend Phys: Rubén Ramsey Discharge: Date of : 80 Report #: [id number] THIS REPORT FOR: //name// CC: Rubén Wise Payton LOGAN DATE OF SERVICE: 10/13/2019 PROCEDURE PERFORMED: Upper endoscopy with biopsies and esophageal dilation. HISTORY OF PRESENT ILLNESS: The patient is a 39-year-old female with a history of dysphagia for approximately 1 month. She had been taking Prilosec on a daily basis. Quit taking this several months ago. She does complain of intermittent heartburn symptoms. Denies any odynophagia. She also had been on antibiotics in the last few months for diverticulitis, which was her first episode. She does complain of diarrhea. Denies any blood in her stools. Plan is for EGD and colonoscopy today. DESCRIPTION OF PROCEDURE: The risks and benefits of the procedure were explained to the patient, those risks including but not limited to bleeding, perforation and the risk of sedation. She understood these risks and gave informed consent. Sedation was given using propofol per anesthesia. Next, using a standard Olympus upper endoscope, the scope was placed in the patient's mouth and advanced under direct vision through the esophagus, stomach and into the second portion of the duodenum. The larynx was normal in appearance. The upper and mid esophagus was normal. In the distal esophagus, grade A erosive esophagitis was noted. No strictures were seen. Upon entering the stomach, a small hiatal hernia was noted. Overall, the gastric mucosa was normal. The pylorus was normal and patent. The duodenal bulb, first and second portion were all normal. Because of her history of diarrhea, biopsies were obtained to rule out the possibility of celiac sprue. The scope was then brought back up into the patient's stomach and a Savary guidewire was inserted through the scope, leaving the guidewire in place as the scope was then withdrawn. Next, a 51-[place] Savary dilation of the esophagus was performed without difficulty. The wire and dilator were removed. The scope was reintroduced into the patient's stomach. There was no evidence of mucosal tear after dilation. The scope was then withdrawn and the procedure terminated. The patient tolerated the procedure well. IMPRESSION: 1. Grade A erosive esophagitis. 2. Small hiatal hernia. 3. Otherwise, normal upper endoscopy. RECOMMENDATIONS: [address] [address] PROCEDURE REPORT Name: AUSTYN BOYCE Room #: REG [facility].#: [id number] Admission: 10/13/19 Attend Phys: Rubén Ramsey Discharge: Date of : 80 Report #: [id number] 1. Await biopsy results. 2. Observe the patient post-dilation. 3. Would recommend long-term daily PPI therapy. Thank you for allowing me to participate in her care. <ELECTRONICALLY SIGNED> By: Rubén Wise MD 10/23/19 1024 1200 1412 Rubén Wise MD /nt
== END | disposition home or self-care (01) ==
LOC: GI 09:13
DX: R19.7 Diarrhea, unspecified (principal); D12.2 Benign neoplasm of ascending colon; K51.40 Inflammatory polyps of colon without complications; K62.89 Other specified diseases of anus and rectum; K57.30 Diverticulosis of large intestine without perforation or abscess without bleeding; K29.80 Duodenitis without bleeding; K20.9 Esophagitis, unspecified; R13.19 Other dysphagia; K44.9 Diaphragmatic hernia without obstruction or gangrene; K21.9 Gastro-esophageal reflux disease without esophagitis; F32.9 Major depressive disorder, single episode, unspecified; F41.9 Anxiety disorder, unspecified; Z98.890 Other specified postprocedural states; Z79.899 Other long term (current) drug therapy; Z87.19 Personal history of other diseases of the digestive system; Z87.891 Personal history of nicotine dependence
CPT/HCPCS: 62110; 62900

== ENCOUNTER → 2019-10-14 | Outpatient (CLI) | payer OTHER ==
[2019-10-14 08:49] LABS: CREATININE 0.9 mg/dL (0.6-1.0)
== END ==
LOC: CAT 08:08
PROVIDERS: Internal Medicine
DX: J98.11 Atelectasis (principal); I25.10 Atherosclerotic heart disease of native coronary artery without angina pectoris; R91.8 Other nonspecific abnormal finding of lung field

== ENCOUNTER → 2019-12-02 | Outpatient (CLI) | payer OTHER | LOC: RAD 14:46 | DX: R93.1 Abnormal findings on diagnostic imaging of heart and coronary circulation (principal) ==

== ENCOUNTER → 2020-01-10 | Outpatient (CLI) | payer OTHER | LOC: MRI 09:36 | DX: M50.122 Cervical disc disorder at C5-C6 level with radiculopathy (principal) ==

== ENCOUNTER → 2020-03-07 | Outpatient (CLI) | payer OTHER ==
[~2020-03-07] VITALS: Ht 172.7 cm; Wt 97.5 kg
[~2020-03-07] MED LIST changes: +PROTONIX40 M2 PO; +ZOLOFT 50 MG TA50 M1 PO
[2020-03-07 13:09] VITALS: BP 101/64
--- NOTE | 2020-03-07 13:40 | NUR ---
Pain Clinic Assessment: 1. History of Osteoarthritis: Left Lower Extremity HIP History of Rheumatoid Arthritis: Not Applicable 2. Height: 5 ft. 8 in. 172.7 cm. Weight: 215.0 lb. oz. 97.524 kg. Patient's BMI: 32.7 3. Vital Signs: BP: 101/64 Pulse: 54 Resp: 14 Temp: 02 Sat: 100 ECG Mon: 4. Pain Intensity: 6 5. Fall Risk: Dizziness: N Needs help standing or walking: N Fallen in the last 3 months: N Fall risk comments: 6. Patient on Blood Thinner: None 7. History of Hypertension: N 8. Opioid Therapy greater than 6 weeks: N Opiate Contract Signed: 9. Risk Assessment Tool Provided: 10. Functional Assessment Tool: 11. Recreational Drug Use: Never Drug Type: Tobacco Use: Never Smoker Tobacco Type: Amount or Packs/day: How Many Years: Alcohol Use: Unknown Frequency: Weekly Quant: 1-7
--- NOTE | 2020-03-08 12:59 | HPC ---
[facility] [address] [place] [address] PAIN MANAGEMENT CONSULTATION Name: AUSTYN BOYCE Room #: REG [facility]..#: [id number] Admission: 03/07/20 Attend Phys: Christopher Tillman DO Discharge: Date of : 80 Report #: [id number] THIS REPORT FOR: cc: Payton Rodgers DNP, Mary E. DNP Johnson, James E. DO ~ DATE OF SERVICE: 03/07/2020 REFERRING PHYSICIAN: Dr. Mcconnell. CHIEF COMPLAINT: Neck pain, left upper extremity pain with paresthesias. HISTORY OF PRESENT ILLNESS: As you know, the patient is a very pleasant 40-year-old female who has had a longstanding history of neck pain, left upper extremity pain that began years ago. She denies specific injury or trauma that may have led to symptom development. She reports about 5 months ago, her symptoms did re-occur spontaneously and has been present since. She again denies injury or trauma that led to this exacerbation of symptoms 5 months ago. She indicates she has been in PT for over 5 weeks going twice to 3 times a week with minimal assistance. She sought further evaluation through her orthopedic surgeon, Dr. Mcconnell who referred the patient to our clinic with concerns of cervical radiculopathy. The patient reports today her pain is continuous, steady and constant. She describes the pain as burning, aching, sharp, tender with numbness and tingling. She places current pain score 6/10, daily average is 7/10, worst pain has been is 9/10. The patient states that lifting and pulling and utilizing the left upper extremity exacerbate symptoms, rest tends to improve the pain. She has been referred to our service to discuss treatment options for suspected cervical radiculopathy. PAST MEDICAL HISTORY: 1. Anxiety and depression. 2. Gastroesophageal reflux disease. PAST SURGICAL HISTORY: 1. Bunionectomy. 2. Tonsillectomy. 3. Cholecystectomy/appendectomy. SOCIAL HISTORY: The patient denies tobacco, IV or illicit drug use. She admits to one alcoholic beverage per day. 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 She is working, not receiving workmen's compensation nor is she trying to obtain disability benefits. She is not in litigation in regards to pain. She is unaccompanied at today's visit. [address] [address] PAIN MANAGEMENT CONSULTATION Name: AUSTYN BOYCE [id number] Admission: 03/07/20 Attend Phys: Christopher Tillman DO Discharge: Date of : 80 Report #: [id number] REVIEW OF SYSTEMS: Positive for abdominal pain, varicose veins, lightheadedness and dizziness, numbness and tingling sensations involving the neck and left upper extremity, nervousness, depression. All other review of systems negative per 12-point review of systems other than those listed in history of present illness. Pain impact score 47 of 70 indicating severe interference of daily activities secondary to pain. ALLERGIES: No reported drug allergies. CURRENT MEDICATIONS: Zoloft 50 mg twice a day, Protonix 40 mg twice a day. IMAGING: MRI cervical spine obtained 01/10/2020 shows C1-C2, C2-C3, C3-C4 and C4-C5 unremarkable. At C5-C6, there is a left paracentral disk protrusion, which abuts the anterior thecal sac. This tapers the canal to about 8-9 mm with minimal left foraminal tapering. C6-C7 and C7-T1 unremarkable. PHYSICAL EXAMINATION: VITAL SIGNS: Blood pressure 101/64, pulse 54, respiratory rate 14 and unlabored. The patient is 100% on room air. Height 5 feet 8 inches tall, weight 215 pounds, BMI calculated 32.7. GENERAL: Well-developed, well-nourished, well-hydrated 40-year-old female, appearing her stated age. She is placing current pain score around 6/10. HEENT: Normocephalic, atraumatic. Pupils equal, round and reactive. Extraocular muscles are intact. NEUROLOGIC: Speech is fluent. The patient deemed an excellent historian. LUNGS: Clear, no wheezes, rhonchi or rales. CARDIOVASCULAR: Regular. No appreciable gallop, no rub. ABDOMEN: Soft, obese, normoactive bowel sounds. EXTREMITIES: Show no clubbing, no cyanosis, and no edema. MUSCULOSKELETAL: Upper extremity strength appears equal and symmetrical 5/5. She is intact to light touch from C5-T1 dermatomes. Spurling's test positive left, negative right. Muscle bulk and tone equal and symmetrical in comparing left upper extremity to right. Deep tendon reflexes equal and symmetrical at biceps, brachialis and triceps. ASSESSMENT: 1. Cervical radiculopathy. 2. Displacement of cervical intervertebral disk with radicular symptoms. 3. Chronic intractable pain. PLAN: 1. Based on today's physical exam and history the patient has provided, the description the patient uses in regards to pain, like source of the patient's [facility] [address] [place] [address] PAIN MANAGEMENT CONSULTATION Name: AUSTYN BOYCE Room #: REG [facility]#: [id number] Admission: 03/07/20 Attend Phys: Christopher Tillman DO Discharge: Date of : 80 Report #: [id number] symptoms is a cervical radiculopathy. This is confirmed with recent MRI, which shows changes at C5-C6 level on the left consistent with the patient's distribution of pain. We have discussed the findings of her MRI and how they correlate to her current symptoms. After this discussion of those correlations, we then discussed treatment options and the following was discussed with the patient today. We discussed with the physical therapy stretching exercises and traction techniques, which could be quite beneficial for the patient. The patient reports no traction techniques were offered during her physical therapy in the past. This would be beneficial to assist in pain control. We discussed medication management with suggestions of treatment utilizing nortriptyline, amitriptyline, Cymbalta, Lyrica or gabapentin. These could be certainly initiated to improve the neuropathic pain the patient is experiencing on the left side. We discussed the cervical epidural injections, for which the patient was referred to our services. We also discussed surgical options with the patient to decompress the C5-C6 findings. After reviewing the risks and benefits of all the proposed treatment options, the patient chose to move forward with a cervical epidural injection under fluoroscopic guidance. 2. The patient was advised risks and benefits of a cervical epidural injection. These risks include but are not necessarily limited to bleeding, bruising, infection, worsening pain, no relief of pain, also risk of temporary or permanent muscle weakness, temporary or permanent nerve damage, possible paralysis and . The patient states she understood those risks and wished to proceed. We also discussed the risks, the patient may incur with the COVID-19 virus and steroid exposure. It has been noted that steroids do reduce the immune response of each individual to the point where she may have a higher risk of abbie COVID virus. It is also noted that steroids reduced one's capability of controlling the symptoms of the COVID-19 and exacerbations of those symptoms have been noted with use of steroids and this is also an extreme risk with the injections during the COVID pandemic. The patient states she understands these risks and wished to proceed. 3. No medication changes were made at today's visit. The patient will continue current medical therapy as previously prescribed. 4. We will see the patient back in followup visit in approximately 3 weeks, at that time review the efficacy of today's cervical epidural injection and determine if the next the series might be necessary. 5. We wish to thank Dr. Mcconnell for the referral of the patient to our clinic. We will keep you apprised of response to treatment as we address cervical radiculopathy. Again, we wish to thank you for the opportunity to see this [facility] [address] [place] [address] PAIN MANAGEMENT CONSULTATION Name: AUSTYN BOYCE [id number] Admission: 03/07/20 Attend Phys: Christopher Tillman DO Discharge: Date of : 80 Report #: [id number] patient in consultation. PROCEDURE NOTE DESCRIPTION OF PROCEDURE: C7-T1 cervical epidural steroid injection under fluoroscopic guidance. This is the first procedure of the first series that the patient is undergoing. After obtaining written consent, the patient was taken back to the fluoroscopy suite and placed in a prone position with separate pillows under chest and forehead to decrease cervical lordosis. The skin overlying the cervical area was prepped and draped in an aseptic fashion. The C7-T1 vertebral interspace was identified by AP fluoroscopy. The skin and subcutaneous tissue overlying the target site of injection was anesthetized using 3 mL of 1% lidocaine. A 20-gauge 3-1/2 inch Tuohy needle was advanced under fluoroscopic guidance toward the epidural space using a left paramedian approach. The epidural space was identified using a loss of resistance to air technique. After negative aspiration for heme or cerebrospinal fluid, a total of 1 mL of Omnipaque was injected. A cervical epidurogram was confirmed using AP and oblique fluoroscopy. After negative aspiration for heme or cerebrospinal fluid, 5 mL of a solution containing 2 mL 40 mg/mL, 80 mg total triamcinolone along with 3 mL of lidocaine 1% was injected in increments. Contrast spread was noted from posterior epidural space. The needle was then retracted approximately fci and the needle track was flushed with 1 mL of 1% lidocaine. There were no apparent new sensory deficits in the upper extremities present following the procedure. A sterile bandage was placed over the injection site. The heart rate, pulse oximetry and blood pressure were continuously monitored after the procedure. There were no apparent complications. The patient tolerated the procedure well and was carefully escorted in the recovery room in stable condition. After meeting discharge criteria, the patient was discharged home. <ELECTRONICALLY SIGNED> By: Christopher Tillman DO 03/08/20 1259 1554 1804 Christopher Tillman DO /nt
== END | disposition home or self-care (01) ==
LOC: PAIN 01-18 06:43
DX: M50.10 Cervical disc disorder with radiculopathy, unspecified cervical region (principal); G89.29 Other chronic pain; F41.9 Anxiety disorder, unspecified; F32.9 Major depressive disorder, single episode, unspecified; K21.9 Gastro-esophageal reflux disease without esophagitis; Z98.890 Other specified postprocedural states; Z79.899 Other long term (current) drug therapy; Z90.49 Acquired absence of other specified parts of digestive tract

== ENCOUNTER → 2020-05-09 | Outpatient (CLI) | payer OTHER ==
[~2020-05-09] VITALS: Ht 172.7 cm; Wt 98.6 kg
--- NOTE | ~2020-05-09 | HPC ---
[facility] [place] [address] PAIN MANAGEMENT CONSULTATION Name: AUSTYN BOYCE Room #: REG [facility]..#: [id number] Admission: 05/09/20 Attend Phys: Christopher Tillman DO Discharge: Date of : 80 Report #: [id number] THIS REPORT FOR: cc: Payton Rodgers DNP, Mary E. DNP Johnson, James E. DO ~ CC: Christopher Mcconnell MD DATE OF SERVICE: 05/09/2020 CHIEF COMPLAINT: Neck pain, left upper extremity pain and paresthesias. HISTORY OF PRESENT ILLNESS: As you know, the patient is a very pleasant 40-year-old female with longstanding history of neck pain, left upper extremity pain and paresthesia that began years ago. She sought evaluation through Orthopedic Surgery who advised the patient's symptoms are likely due to cervical radiculopathy. She was subsequently referred to our clinic on 03/07/2020. We saw the patient on 03/07/2020 and provided the patient the first in a series of cervical epidural injections to address this issue. She reported improvement of symptoms of 75%, which is ongoing. She returns today in followup visit reporting a pain score about 5/10. She is requesting next in the series of epidural injections. She describes the pain as burning, numbness and tingling, exacerbated with lifting and pulling and improves with rest and heat as well as cervical epidural injections. She returns today in followup visit for the second in series of cervical epidural injections. ALLERGIES: No known drug allergies. CURRENT MEDICATIONS: Zoloft 50 mg twice a day, Protonix 40 mg once a day. SOCIAL HISTORY: The patient denies tobacco, IV or illicit drug use. Admits to occasional alcohol beverage. 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 IMAGING: No new imaging available. PHYSICAL EXAMINATION: VITAL SIGNS: Blood pressure 127/86, pulse 53, respiratory rate 16 and unlabored. The patient is 100% on room air. Height 5 feet 8 inches tall, weight 217.4 pounds, BMI calculated 33.1. GENERAL: A well-developed, well-nourished, well-hydrated 40-year-old female appearing stated age, pain is rated today around 5/10. HEENT: Normocephalic, atraumatic. Pupils are equal, round and reactive. [address] [address] PAIN MANAGEMENT CONSULTATION Name: AUSTYN BOYCE Room #: REG CLI [facility]#: [id number] Admission: 05/09/20 Attend Phys: Christopher Tillman DO Discharge: Date of : 80 Report #: [id number] EXTREMITIES: Show no clubbing, no cyanosis, no edema. MUSCULOSKELETAL: Upper extremity strength equal and symmetrical 5/5, intact to light touch from C5-T1 dermatomes. Spurling's test positive on the left, negative right. Muscle bulk and tone equal and symmetrical in comparing left upper extremity to right. Deep tendon reflexes are symmetrical at biceps, brachialis and triceps. There is some palpatory tenderness over the paraspinal musculature. No spinous process tenderness. ASSESSMENT: 1. Cervical radiculopathy. 2. Displacement of cervical intervertebral disk with radiculopathy. 3. Chronic intractable pain. PLAN: 1. The patient returns today in followup visit having noted 75% improvement in overall pain with the cervical epidural injection provided at our last visit. Unfortunately, she has had a slow and progressive return of symptoms, now placing pain at around 5/10. She returns today for the second in the series of cervical epidural injections. The patient denies new injury or trauma that may have led to symptom reoccurrence. There have been no changes in her medical history since our last visit. The patient has been advised risks and benefits of a cervical epidural injection. These risks include but are not necessarily limited to bleeding, bruising, infection, worsening pain, no relief of pain, also risk of temporary or permanent muscle weakness, temporary or permanent nerve damage, possible paralysis and . The patient states understood and wished to proceed. 2. We will see the patient back in followup visit on an as needed basis for possible next in the series of cervical epidural injections. We are hopeful the patient will see good and prolonged benefit with today's procedure. By: 1227 1834 Christopher Tillman DO /nt
--- NOTE | ~2020-05-09 | P ---
[facility] [place] [address] PROCEDURE REPORT Name: AUSTYN BOYCE Room #: REG [facility].#: [id number] Admission: 05/09/20 Attend Phys: Christopher Tillman DO Discharge: Date of : 80 Report #: [id number] THIS REPORT FOR: cc: Payton Rodgers DNP, Mary E. DNP Johnson, James E. DO ~ CC: Christopher Mcconnell MD DATE OF SERVICE: 05/09/2020 DESCRIPTION OF PROCEDURE: C7-T1 cervical epidural steroid injection under fluoroscopic guidance. This is the second procedure of the first series that the patient is undergoing. After obtaining written consent, the patient was taken back to the fluoroscopy suite and placed in a prone position with separate pillows under chest and forehead to decrease cervical lordosis. The skin overlying the cervical area was prepped and draped in an aseptic fashion. The C7-T1 vertebral interspace was identified by AP fluoroscopy. The skin and subcutaneous tissue overlying the target site of injection was anesthetized using 3 mL of 1% lidocaine. A 20-gauge 3-1/2 inch Tuohy needle was advanced under fluoroscopic guidance toward the epidural space using a paramedian approach. The epidural space was identified using a loss of resistance to air technique. After negative aspiration for heme or cerebrospinal fluid, a total of 1 mL of Omnipaque was injected. A cervical epidurogram was confirmed using AP and oblique fluoroscopy. After negative aspiration for heme or cerebrospinal fluid, 5 mL of solution containing 2 mL 40 mg per mL, 80 mg total triamcinolone along with 3 mL of lidocaine 1% was injected in increments. Contrast spread was noted from posterior epidural space. The needle was then retracted approximately usp and the needle track was flushed with 1 mL of 1% lidocaine. There were no new sensory deficits in the upper extremities present following the procedure. A sterile bandage was placed over the injection site. The heart rate, pulse oximetry and blood pressure were continuously monitored after the procedure. There were no apparent complications. The patient tolerated the procedure well and was carefully escorted in the recovery room in [address] [address] PROCEDURE REPORT Name: AUSTYN BOYCEN Room #: [facility].#: [id number] Admission: 05/09/20 Attend Phys: Christopher Tillman DO Discharge: Date of : 80 Report #: [id number] stable condition. After meeting discharge criteria, the patient was discharged home. By: 1227 1836 Christopher Tillman DO /nt
[2020-05-09 12:28] VITALS: BP 127/86
--- NOTE | 2020-05-09 12:33 | NUR ---
Pain Clinic Assessment: 1. History of Osteoarthritis: Left Lower Extremity HIP History of Rheumatoid Arthritis: Not Applicable 2. Height: 5 ft. 8 in. 172.7 cm. Weight: 217.4 lb. oz. 98.612 kg. Patient's BMI: 33.1 3. Vital Signs: BP: 127/86 Pulse: 53 Resp: 16 Temp: 02 Sat: 100 ECG Mon: 4. Pain Intensity: 5 5. Fall Risk: Dizziness: N Needs help standing or walking: N Fallen in the last 3 months: N Fall risk comments: 6. Patient on Blood Thinner: None 7. History of Hypertension: N 8. Opioid Therapy greater than 6 weeks: N Opiate Contract Signed: 9. Risk Assessment Tool Provided: 10. Functional Assessment Tool: 11. Recreational Drug Use: Never Drug Type: Tobacco Use: Never Smoker Tobacco Type: Amount or Packs/day: How Many Years: Alcohol Use: No Frequency: Quant:
== END | disposition home or self-care (01) ==
LOC: PAIN 06:57
PROVIDERS: ATTEND Anesthesiology Pain Medicine
DX: M50.10 Cervical disc disorder with radiculopathy, unspecified cervical region (principal); G89.29 Other chronic pain; Z98.890 Other specified postprocedural states; Z79.899 Other long term (current) drug therapy

== ENCOUNTER → 2021-03-02 | Outpatient (CLI) | payer OTHER ==
[2021-03-02 11:57] LABS: ABSOLUTE NEUTROPHILS 3.8 thou/uL (1.4-8.2); BASOPHILS 0.6 % (0.0-2.0); EOSINOPHILS 1.6 % (0.0-3.0); HEMATOCRIT 37.7 % (37.0-47.0); LYMPHOCYTES 35.4 % (24.0-44.0); MCH 32.1 pg (26.0-34.0); MCHC 34.4 g/dL (28.0-37.0); MCV 93.3 fL (80.0-100.0); MONOCYTES 6.2 % (1.0-8.0); PLATELET COUNT 167 thou/uL (150-400); POLYS 56.2 % (36.0-66.0); RBC 4.04 mil/uL (4.20-5.00); RDW 13.1 % (10.5-14.5); WBC 6.7 thou/uL (4.0-11.0)
[2021-03-02 12:14] LABS: ALBUMIN 3.8 g/dL (3.4-5.0); CALCIUM 8.9 mg/dL (8.5-10.1); CREATININE 0.6 mg/dL (0.6-1.0); POTASSIUM 3.1 mmol/L (3.5-5.1); TOTAL BILIRUBIN 0.4 mg/dL (0.2-1.0); TOTAL PROTEIN 6.7 g/dL (6.4-8.2)
== END ==
LOC: CAT 11:33
PROVIDERS: ATTEND Nurse Practitioner
DX: K57.92 Diverticulitis of intestine, part unspecified, without perforation or abscess without bleeding (principal); K21.9 Gastro-esophageal reflux disease without esophagitis; K57.30 Diverticulosis of large intestine without perforation or abscess without bleeding; D25.9 Leiomyoma of uterus, unspecified; N83.202 Unspecified ovarian cyst, left side

== ENCOUNTER → 2021-03-07 | Outpatient (CLI) | payer OTHER ==
[~2021-03-07] VITALS: Ht 175.3 cm; Wt 74.8 kg
[~2021-03-07] MED LIST changes: +BACLOFEN 10MG T10 MG PO; +NEURONTIN300 MG PO
[2021-03-07 10:08] VITALS: BP 104/69
--- NOTE | 2021-03-07 10:16 | NUR ---
Pain Clinic Assessment: 1. History of Osteoarthritis: Left Lower Extremity HIP History of Rheumatoid Arthritis: Not Applicable 2. Height: 5 ft. 9 in. 175.3 cm. Weight: 164.8 lb. oz. 74.753 kg. Patient's BMI: 24.3 3. Vital Signs: BP: 104/69 Pulse: 56 Resp: 16 Temp: 02 Sat: 99 ECG Mon: 4. Pain Intensity: 6 TO 8 AT END OF DAY 5. Fall Risk: Dizziness: N Needs help standing or walking: N Fallen in the last 3 months: N Fall risk comments: 6. Patient on Blood Thinner: None 7. History of Hypertension: N 8. Opioid Therapy greater than 6 weeks: N Opiate Contract Signed: 9. Risk Assessment Tool Provided: LOW-1 10. Functional Assessment Tool: 11. Recreational Drug Use: Never Drug Type: Tobacco Use: Former Smoker Tobacco Type: Amount or Packs/day: How Many Years: Alcohol Use: Yes Frequency: Special Occasions Quant: 1
--- NOTE | 2021-03-14 08:22 | HPC ---
[facility] [address] [place] [address] PAIN MANAGEMENT CONSULTATION Name: AUSTYN BOYCE Room #: REG [facility]..#: [id number] Admission: 03/07/21 Attend Phys: Christopher Tillman DO Discharge: Date of : 80 Report #: [id number] THIS REPORT FOR: cc: Payton Rodgers DNP, Mary E. DNP Johnson, James E. DO ~ DOC #: [id number] cc: DOREEN Braxton DO DATE OF SERVICE: 03/07/2021 CHIEF COMPLAINT: Neck pain, left upper extremity pain with paresthesias. HISTORY OF PRESENT ILLNESS: As you know, the patient is a pleasant 41-year-old female who has returned today in followup visit with recurrence of cervical radiculopathy involving the neck and left upper extremity. The patient states this pain began years ago. She has undergone epidural injections under fluoroscopic guidance twice prior to today's visit. She indicates the most recent of the cervical epidural injection gave 75% improvement in overall pain lasting for a prolonged period of time. She returns today in followup visit to undergo next in the series of cervical epidural injections in hopes of building on success of previous intervention. The patient is denying any new injury or trauma that may have led to symptom reoccurrence. She returns today in followup visit for the next in the series of cervical epidural injections. ALLERGIES: No known drug allergies. CURRENT MEDICATIONS: Zoloft 50 mg once a day and pantoprazole 40 mg once a day. SOCIAL HISTORY: The patient denies tobacco use, IV, or illicit drug use. Admits to occasional alcohol beverage. 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 She is working, not receiving workmen's compensation nor is she trying to obtain disability benefits. She is unaccompanied today. IMAGING: No new imaging available. PHYSICAL EXAMINATION: VITAL SIGNS: Blood pressure 104/69, pulse 56, respiratory rate 16 and unlabored. The patient is 99% on room air. Height 5 feet 9 inches tall, weight 164.8 pounds, BMI calculated 24.3. GENERAL: Well-developed, well-nourished, well-hydrated 41-year-old female appearing stated age. Pain is rated today at around 6-8/10 depending on activity. HEENT: Normocephalic, atraumatic. Pupils are round and responsive. EXTREMITIES: Show no clubbing, no cyanosis. No appreciable edema. MUSCULOSKELETAL: Upper extremity strength remains symmetrical 5/5. Muscle bulk [facility] [address] [place] [address] PAIN MANAGEMENT CONSULTATION Name: AUSTYN BOYCE Room #: REG [facility]#: [id number] Admission: 03/07/21 Attend Phys: Christopher Tillman DO Discharge: Date of : 80 Report #: [id number] and tone is equal and symmetrical comparing the upper extremities. Spurling's test positive left, negative right. Cervical provocation testing is met with slight increase in pain with leftward rotation and leftward lateral flexion. ASSESSMENT: 1. Cervical radiculopathy. 2. Displacement of cervical intervertebral disk with radiculopathy. 3. Chronic intractable pain. PLAN: 1. The patient returns today in followup visit to undergo next in the series of cervical epidural injections under fluoroscopic guidance. The patient has noted excellent benefit with cervical epidural injections in the past and hopeful to see similar improvement today. The patient has been advised of the risks and benefits to this procedure. These risks include, but are not necessarily limited to bleeding, bruising, infection, worsening pain, no relief of pain, also risk of temporary or permanent muscle weakness, temporary or permanent nerve damage, possible paralysis post-dural puncture headache and . The patient states she understood and wished to proceed. 2. No medication changes made at today's visit. The patient will continue current medical therapy as prior prescribed. 3. We will see the patient back in followup visit for the next in the series of cervical epidural injections on an as needed basis. We are hopeful the patient will once again see good and prolonged benefit with today's epidural injection. PROCEDURE NOTE DESCRIPTION OF PROCEDURE: C7-T1 cervical epidural steroid injection under fluoroscopic guidance. This is the 3rd procedure of the first series that the patient is undergoing. After obtaining written consent, the patient was taken back to the fluoroscopy suite and placed in a prone position with separate pillows under chest and forehead to decrease cervical lordosis. The skin overlying the cervical area was prepped and draped in an aseptic fashion. The C7-T1 vertebral interspace was identified by AP fluoroscopy. The skin and subcutaneous tissue overlying the target site of injection was anesthetized using 3 mL of 1% lidocaine. A 20-gauge 3-1/2 inch Tuohy needle was advanced under fluoroscopic guidance toward the epidural space using a midline approach. The epidural space was identified using a loss of resistance to air technique. After negative aspiration for heme or cerebrospinal fluid, a total of 1 mL of Omnipaque was injected. A cervical epidurogram was confirmed using AP and oblique fluoroscopy. After negative aspiration for heme or cerebrospinal fluid, 5 mL of a solution containing 2 mL 40 mg per mL 80 mg total triamcinolone along with [address] [address] PAIN MANAGEMENT CONSULTATION Name: AUSTYN BOYCE Room #: REG [facility]#: [id number] Admission: 03/07/21 Attend Phys: Christopher Tillman DO Discharge: Date of : 80 Report #: [id number] mL of lidocaine 1% was injected in increments. Contrast spread was noted from posterior epidural space. The needle was then retracted approximately long-term and the needle track was flushed with 1 mL of 1% lidocaine. There were no apparent new sensory deficits in the upper extremities present following the procedure. A sterile bandage was placed over the injection site. The heart rate, pulse oximetry and blood pressure were continuously monitored after the procedure. There were no apparent complications. The patient tolerated the procedure well and was carefully escorted in the recovery room in stable condition. After meeting discharge criteria, the patient was discharged home. Christopher Tillman DO JEJ/RAH <ELECTRONICALLY SIGNED> By: Christopher Tillman DO 03/14/21 0822 0723 2114 Christopher Tillman DO /nt
== END | disposition home or self-care (01) ==
LOC: PAIN 09-05 06:58
PROVIDERS: ATTEND Anesthesiology Pain Medicine
DX: M50.10 Cervical disc disorder with radiculopathy, unspecified cervical region (principal); G89.29 Other chronic pain; Z98.890 Other specified postprocedural states; Z79.899 Other long term (current) drug therapy; Z88.8 Allergy status to other drugs, medicaments and biological substances

== ENCOUNTER → 2021-05-16 | Outpatient (CLI) | payer OTHER ==
[~2021-05-16] VITALS: Ht 172.7 cm; Wt 73.9 kg
[~2021-05-16] MED LIST changes: +PROTONIX40 M4 PO; +ZOLOFT100 MG PO
--- NOTE | 2021-05-17 13:24 | P ---
[facility] [place] [address] PROCEDURE REPORT Name: AUSTYN BOYCE [id number] Admission: 05/16/21 Attend Phys: Rubén Ramsey Discharge: Date of : 80 Report #: [id number] THIS REPORT FOR: cc: Payton Rodgers DNP, Mary E. DNP McElhinney, Christian C. MD ~ cc: DOREEN Braxton DATE OF SERVICE: 05/16/2021 PROCEDURE PERFORMED: Colonoscopy with biopsies. HISTORY OF PRESENT ILLNESS: The patient is a 41-year-old female who had a hospitalization for diverticulitis in 2019. She underwent an EGD, colonoscopy by myself at that time, adenomatous polyps were removed. Random biopsies were negative for microscopic colitis as well as acute cryptitis. Upper biopsies were also negative for celiac disease. The patient now reports several months of left lower quadrant abdominal pain as well as diarrhea. She denies any blood in her stools. Her weight has been stable. No family history of colon cancer or inflammatory bowel disease. DESCRIPTION OF PROCEDURE: The risks and benefits of the procedure were explained to the patient, those risks including but not limited to bleeding, perforation and the risk of sedation. She understood those risks and gave informed consent. Sedation was given using propofol per anesthesia. Next, a digital rectal exam was initially performed, which was normal. Next, using a standard Olympus colonoscope, the scope was placed in the patient's anus and advanced under direct vision to the cecum. The overall prep was good. The cecum and ileocecal valve were normal in appearance. The terminal ileum was intubated and normal in appearance. Ascending, transverse and descending colon were all normal. Random biopsies were obtained to rule out the possibility of microscopic colitis. Multiple diverticula were again noted in the sigmoid colon. No evidence of inflammation. In the rectum, there was mild erythema noted. Again, biopsies were obtained to rule out colitis. On retroflexion, no abnormalities were noted. The scope was then withdrawn and the procedure terminated. The patient tolerated the procedure well. IMPRESSION: 1. Sigmoid diverticulosis without obvious inflammation. 2. Mild erythema in the rectum. 3. Otherwise, normal colonoscopy. RECOMMENDATIONS: 1. Await biopsy results. 2. If biopsies are negative for inflammation and microscopic colitis, suspect the patient may have irritable bowel syndrome. We will start Levsin at this [address] [address] PROCEDURE REPORT Name: AUSTYN BOYCE Room #: REG [facility]#: [id number] Admission: 05/16/21 Attend Phys: Rubén Ramsey Discharge: Date of : 80 Report #: [id number] time on a p.r.n. basis. If no improvement, consider Xishaw in the future. Thank you for allowing me to participate in her care. <ELECTRONICALLY SIGNED> By: Rubén Wise MD 05/17/21 1324 0853 2141 Rubén Wise MD /brad
--- NOTE | 2021-05-22 11:07 | PATH ---
[facility] [address] [place] [address] PATHOLOGY RPT PROCEDURE Name: AUSTYN NORTH Room #: REG [facility] M.R.#: [id number] Admission: 05/16/21 Date of : 80 Discharge: Report #: [id number] Path Case #: [id number] [facility] Accession Number: [id number] . 01 Material submitted: . PART A: colon - RANDOM COLON BIOPSY RULE OUT MICROSCOPIC COLITIS PART B: rectum - BIOPSY RECTUM RULE OUT COLITIS . 01 Clinical history: . DTS/COLONOSCOPY/DIVERTICULITIS . 02 Diagnosis: A. Large intestinal mucosa, random colon, rule out microscopic colitis, endoscopic biopsy: - Nonspecific reactive changes with focal hyperplastic crypts as well as an occasional intraepithelial eosinophil. - Negative for dysplasia or malignancy. . B. Large intestinal mucosa, rectum, endoscopic biopsy: - Nonspecific reactive changes with focal hyperplastic crypts as well as an occasional intraepithelial eosinophil. - Negative for dysplasia or malignancy. (IUV:pit; 05/21/2021) QTP 05/21/2021 1816 Local . 02 Comment: The sampled fragments show reactive hyperplastic changes, focal fibrotic lamina propria, a scattered rare focus of subepithelial hemorrhage as well as an occasional eosinophil within the surface epithelium as well as a rare crypt. Findings may be suggestive of a resolved episode of colitis, chronic diverticulitis, drug/medication induced colitis, as well as bowel preparation. Features of microscopic colitis are not identified. Clinical correlation is suggested. (IUV:pit; 05/21/2021) . 02 Electronically signed: . Tracey Johns MD, Pathologist NPI- [id number] . 01 Gross description: . A. The specimen is received in formalin, labeled "Austyn North random colon BX ". Received are 2 segments of pale estrada tissue ranging in size from 0.5 to 0.6 cm in maximum dimensions. The specimen is submitted entirely in cassette A1. . B. The specimen is received in formalin, labeled "Austyn North BX rectum". Received are 4 segments of pale estrada tissue [place] [address] PATHOLOGY RPT PROCEDURE Name: AUSTYN NORTH [facility] [id number] Admission: 05/16/21 Date of : 80 Discharge: Report #: [id number] Path Case #: [id number] 0.4 to 0.9 cm in maximum dimensions. The specimen is submitted entirely in cassette B1.([facility]; 05/18/2021) [facility] 05/21/2021 1807 Local . 02 Pathologist provided ICD-10: K57.32 . 02 CPT . 296002, [id number] Specimen Comment: A courtesy copy of this report has been sent to [phone], [phone] Specimen Comment: [id number] Specimen Comment: Report sent to / DR BARKER Performed at: [address], [place] [id number] MD Venancio Varela MD Phone: [phone] Performed at: [address] [id number] MD Tracey Johns MD Phone: [phone]
== END | disposition home or self-care (01) ==
LOC: GI 08:21
PROVIDERS: ATTEND Specialist
DX: R10.32 Left lower quadrant pain (principal); K57.30 Diverticulosis of large intestine without perforation or abscess without bleeding; K62.89 Other specified diseases of anus and rectum; K21.9 Gastro-esophageal reflux disease without esophagitis; F32.9 Major depressive disorder, single episode, unspecified; F41.9 Anxiety disorder, unspecified; Z98.890 Other specified postprocedural states; Z79.899 Other long term (current) drug therapy; Z87.891 Personal history of nicotine dependence; Z90.49 Acquired absence of other specified parts of digestive tract; Z88.8 Allergy status to other drugs, medicaments and biological substances
CPT/HCPCS: 62110; 62900

== ENCOUNTER → 2021-11-02 | Outpatient (CLI) | payer OTHER | LOC: RAD 14:41 | PROVIDERS: ATTEND Family Medicine | DX: N60.01 Solitary cyst of right breast (principal) ==